=== PATIENT | male | born 1975 | race Two or more races ===

== ENCOUNTER 2021-01-27 07:13 | Emergency (ER) | payer OTHER ==
[~2021-01-27] VITALS: Ht 188 cm; Wt 126.1 kg
[2021-01-27] MEDS ORDERED: SODIUM CHLORIDE 0.9% 500 ML IV ONE (07:15)
[2021-01-27 07:17] VITALS: BP 100/75
[2021-01-27 07:42] LABS: Basophils # (auto) 0.1 10 ^3/uL (0-0.2); Basophils % (auto) 0.9 % (0.0-2.0); Eosinophils # (auto) 0.4 10 ^3/uL (0-0.8); Eosinophils % (auto) 3.6 % (0.0-7.0); Hematocrit 39.1 % (41.0-53.0); Hemoglobin 13.4 g/dL (13.5-17.5); Lymphocytes # (auto) 2.3 10 ^3/uL (0.4-5.4); Lymphocytes % (auto) 23.3 % (10.0-50.0); Mean Corpuscular Hemoglobin 31.2 pg (28.0-32.0); Mean Corpuscular Hgb Conc. 34.3 g/dL (32.0-36.0); Mean Corpuscular Volume 90.9 fL (80.0-100.0); Monocytes % (auto) 10.3 % (0.0-12.0); Neutrophils # (auto) 6.1 10 ^3/uL (1.6-8.6); Neutrophils % (auto) 61.9 % (37.0-80.0); Red Cell Distribution Width 12.2 % (11.8-14.3); White Blood Cell 9.9 10^3/uL (4.4-10.8)
[2021-01-27 08:05] LABS: Albumin 3.2 g/dL (3.4-5.0); BUN/Creatinine Ratio 9.5; Bilirubin, Total 1.1 mg/dL (0.2-1.0); Calcium 8.9 mg/dL (8.5-10.1); Total Protein 7.8 g/dL (6.4-8.2)
[2021-01-27] MEDS ORDERED: IOHEXOL 300 MG/ML 100ML BOTTLE IJ ONE (08:13)
[2021-01-27] MEDS ORDERED: CLINDAMYCIN 600MG IV 50 ML IV ONE (09:00)
[2021-01-27] MEDS ORDERED: KETOROLAC TROMETH 30 MG/ML 1ML VIAL IV ONE (09:30)
== END 2021-01-27 10:35 | disposition home or self-care (01) ==
LOC: EEVIPCON 07:13 → ER 07:13 → EDBD 07:13 → ER 10:35
DX: L03.317 Cellulitis of buttock (principal); I11.0 Hypertensive heart disease with heart failure; I50.9 Heart failure, unspecified; Z93.3 Colostomy status
CPT/HCPCS: 36415; 74177; 80053; 85025; 85652; 96361; 96365; 96375; 99285; J1885; J3490; Q9967